=== PATIENT | male | born 1975 | race Hispanic/Latino ===

== ENCOUNTER 2018-01-21 17:04 | Emergency (ER) | payer OTHER ==
[2018-01-21] MEDS ORDERED: KETOROLAC TROMETHAMINE 60 MG/2 ML VIAL ONE (17:49)
[2018-01-21] MEDS ORDERED: DIAZEPAM 5 MG TABLET ONE (17:50)
== END 2018-01-21 19:18 | disposition home or self-care (01) ==
LOC: EDH 17:04
DX: S39.012A Strain of muscle, fascia and tendon of lower back, initial encounter (principal); X50.9XXA Other and unspecified overexertion or strenuous movements or postures, initial encounter; Y93.89 Activity, other specified; Y92.89 Other specified places as the place of occurrence of the external cause; Y99.8 Other external cause status
CPT/HCPCS: 96372; 99283; J1885